=== PATIENT | female | born 1980 | race Caucasian/White ===

== ENCOUNTER 2019-08-01 17:09 | Emergency (ER) | payer OTHER ==
[2019-08-01 17:21] VITALS: BP 97/58
[2019-08-01 17:41] LABS: BASOPHILS % 0.6 % (0.0-1.5); NEUTROPHILS # 7.4 # k/uL (1.4-7.7)
--- NOTE | 2019-08-01 17:50 | ED Physician Documentation ---
General Adult - HISTORIAN Historian: patient - HPI Stated Complaint: Fever/Weakness Chief Complaint: Fever Additional Information: Patient is a 39 year old female who presents to the ER with c/o fever, weakness, decreased urination and burning with urination- symptoms started yesterday- no nausea or vomiting. Onset: days ago Timing: still present Severity: mild - ROS CONST: fever, weakness EYES/ENT: none CVS/RESP: none GI/: problems urinating MS/SKIN/LYMPH: none NEURO/PSYCH: denies: headache - PAST HX Past History: none Other History: none Surgeries/Procedures: cholecystectomy, hysterectomy Immunizations: UTD Allergies/Adverse Reactions: Allergies Allergy/AdvReac Type Severity Reaction Status Date / Time albuterol [From Ventolin HFA] Allergy Verified 08/01/19 17:21 Home Medications: Ambulatory Orders Medication Instructions Recorded NK 08/01/19 - SOCIAL HX Smoking History: greater than 1 pack/day Alcohol Use: rarely Drug Use: none - FAMILY HX Family History: No - VITAL SIGNS Vital Signs: Vital Signs Temp Pulse Resp BP Pulse Ox 99.0 F 92 H 15 97/58 97 08/01/19 17:10 08/01/19 17:10 08/01/19 17:10 08/01/19 17:10 08/01/19 17:10 - REVIEWED ASSESSMENTS Nursing Assessment Reviewed: Yes Vitals Reviewed: Yes ED Results Lab/Radiology - Orders Orders: ED Orders Category Date Time Status Place IV Lock 1T Care 08/01/19 17:30 Active CBC/PLATELET/DIFF Routine Lab 08/01/19 17:30 Received CMP Routine Lab 08/01/19 17:30 Received URINALYSIS Routine Lab 08/01/19 Ordered 0.9 % Sodium Chloride [Normal Saline] 1,000 ml Med 08/01/19 17:30 Active IV Q1H General Adult Physical Exam - PHYSICAL EXAM GENERAL APPEARANCE: mild distress EENT: eye inspection normal, ENT inspection normal, pharynx normal, dry mucous membranes NECK: normal inspection, supple RESPIRATORY: breath sounds normal CVS: heart sounds normal, equal pulses ABDOMEN: soft, normal bowel sounds, tenderness (flank pain) BACK: normal inspection SKIN: warm/dry, pallor EXTREMITIES: non-tender, normal range of motion NEURO: oriented X3, CN's nml as tested, motor nml, sensation nml, mood/affect nml, cognition normal Discharge Clincal Impression: Urinary tract infection Referrals: Primary Doctor,No [Primary Care Provider] - 2 Days Additional Instructions: Take Macrobid 100mg by mouth twice a day for 7 days (take until gone) Increase water intake May alternate Tylenol and Ibuprofen as needed for discomfort Follow up with PCP next week for re-evaluation Condition: Good Disposition: 01 HOME, SELF-CARE Decision to Admit: NO Decision Time: 21:48
[2019-08-01 17:53] LABS: eGFR (Non-African) > 60
[2019-08-01] MEDS: 0.9 % SODIUM CHLORIDE 1,000 ML IV ONE (18:10)
[2019-08-01] MEDS: NITROFURANTOIN MONO/MACRO 100 MG CAPSULE PO ONE (18:10)
[2019-08-02 08:04] LABS: APPEARANCE,URINE CLOUDY (CLEAR); COLOR,URINE YELLOW (YELLOW)
[2019-08-02 08:05] LABS: OCCULT BLOOD,URINE 2+ (NEGATIVE); PH URINE 7.5 (5.0 - 8.0)
--- NOTE | 2019-08-08 09:18 | Diagnostic Imaging Report ---
RACHEL MONROE ED [facility] [id number] [facility], [facility] [address] [place], [place]. [address] Report Submission Date: Aug 01, 2019 6:05:51 PM CDT Patient Study Name: PORSHA JOHNSTON Date: Aug 01, 2019 5:47:23 PM CDT Modality Type: CT\SR Gender: F Description: CT ABD PELVIS W/O CO : 82 Institution: [facility] Physician: RACHEL MONROE ED HISTORY: 39-year-old female with hematuria, flank pain; prior cholecystectomy and hysterectomy. COMPARISON: None available. TECHNIQUE: Helical CT images of the abdomen and pelvis were performed without contrast. Sagittal and coronal reformatted images were obtained. FINDINGS: Urinary tract: No renal or ureteral calculi, hydronephrosis, or hydroureter bilaterally. No urinary bladder calculi. The urinary bladder is decompressed. Miscellaneous: There is scarring versus atelectasis in the left lower lobe. 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 The noncontrast liver, spleen, pancreas, gallbladder, adrenal glands are unremarkable. There may be trace free fluid in the pelvis. No abnormal bowel dilatation, free air, or suspicious adenopathy. The appendix is not dilated and does not appear inflamed. The uterus is surgically absent. There are mild degenerative changes of the hips. There is a lumbosacral transitional vertebrae. There is spina bifida occulta L5-S1. IMPRESSION: 1. No urinary tract calculi, hydronephrosis, or hydroureter bilaterally. 2. Postoperative changes of cholecystectomy and hysterectomy. 3. No evidence of bowel obstruction, acute appendicitis, or other acute process in the abdomen or pelvis. Electronically signed on Aug 01, 2019 6:05:51 PM CDT by: John CARTER
== END 2019-08-01 18:46 | disposition home or self-care (01) ==
LOC: ED 17:09
DX: N39.0 Urinary tract infection, site not specified (principal)
CPT/HCPCS: 74176; 80053; 81002; 85025; 87086; 87186; 96360; 99284; J7030; S1016